=== PATIENT | female | born 1985 | race Caucasian/White ===

== ENCOUNTER 2022-10-25 06:51 | Day surgery (SDC) | payer MEDICAID ==
[~2022-10-25] VITALS: Ht 175.3 cm; Wt 79.2 kg
[2022-10-25] VITALS (7 sets, daily range): BP systolic 94–122; BP diastolic 63–77; PULSE 82–92; RESP 15–18; TEMP 98.1; O2SAT 92–97
[~2022-10-25 06:51] MED LIST: FOLI0.4T14 PO; NICO-503 PO; OMEP20CA16 PO; POLY119P2 PO; SIME62.5 PO; THIA50TA10 PO
[2022-10-25] MEDS ORDERED: ZOLP5TAB2 PO (07:47)
[2022-10-25] MEDS ORDERED: SPIR25TA5 PO (07:47)
[2022-10-25] MEDS ORDERED: POTA-192 PO (07:47)
[2022-10-25] MEDS ORDERED: FURO-150 PO (07:47)
[2022-10-25] MEDS: albumin 25% 100mL bottle x 1 IV PRN ×2 (08:56→08:57)
== END 2022-10-25 09:50 | disposition home or self-care (01) ==
LOC: SSTAY O 06:51
PROVIDERS: ATTEND Radiology Vascular & Interventional Radiology
DX: K70.31 Alcoholic cirrhosis of liver with ascites (principal); E87.5 Hyperkalemia; F41.9 Anxiety disorder, unspecified; E66.9 Obesity, unspecified; Z68.25 Body mass index [BMI] 25.0-25.9, adult; F10.20 Alcohol dependence, uncomplicated; Z98.890 Other specified postprocedural states; Z98.51 Tubal ligation status; F17.290 Nicotine dependence, other tobacco product, uncomplicated; Z79.899 Other long term (current) drug therapy
CPT/HCPCS: 49083; C1729; J3490; P9047; A6258; A6449

== ENCOUNTER 2022-11-11 08:37 | Day surgery (SDC) | payer MEDICAID ==
[2022-11-11] VITALS (8 sets, daily range): BP systolic 100–137; BP diastolic 61–83; PULSE 77–90; RESP 12–16; TEMP 98.1; O2SAT 97–99
[~2022-11-11] VITALS: Ht 175.3 cm; Wt 79.0 kg
[~2022-11-11 08:37] MED LIST changes: +FURO-150 PO; +POTA-192 PO; -SIME62.5 PO; +SPIR25TA5 PO; -THIA50TA10 PO; +ZOLP5TAB2 PO
[2022-11-11] MEDS: albumin 25% 100mL bottle x 1 IV PRN ×2 (09:15→10:00)
== END 2022-11-11 11:00 | disposition home or self-care (01) ==
LOC: SSTAY O 08:37
PROVIDERS: ATTEND Radiology Vascular & Interventional Radiology
DX: K70.31 Alcoholic cirrhosis of liver with ascites (principal); E87.6 Hypokalemia; F41.9 Anxiety disorder, unspecified; F10.20 Alcohol dependence, uncomplicated; E66.9 Obesity, unspecified; Z68.25 Body mass index [BMI] 25.0-25.9, adult; F17.290 Nicotine dependence, other tobacco product, uncomplicated; Z98.51 Tubal ligation status; Z98.890 Other specified postprocedural states; Z79.899 Other long term (current) drug therapy
CPT/HCPCS: 49083; C1729; J3490; P9047; A6258

== ENCOUNTER 2022-12-03 07:15 | Day surgery (SDC) | payer MEDICAID ==
[~2022-12-03] VITALS: Ht 175.3 cm; Wt 80.4 kg
[2022-12-03] MEDS ORDERED: albumin 25% 100mL bottle x 1 IV PRN (07:35)
[2022-12-03] MEDS ORDERED: SPIR100T5 PO (07:45)
[2022-12-03 07:47] VITALS: BP 99/63; PULSE 99; RESP 14; TEMP 97.7; O2SAT 98
[2022-12-03 08:06] VITALS: BP 105/79; PULSE 91; RESP 14; O2SAT 100
[2022-12-03] MEDS ORDERED: ondansetron/PF 4mg/2ml inj IV ONE (08:15)
[2022-12-03 08:25] VITALS: BP 104/66; PULSE 97; RESP 14; O2SAT 100
[2022-12-03 08:36] VITALS: BP 95/67; PULSE 87; RESP 14; O2SAT 100
[2022-12-03 08:51] VITALS: BP 89/60; PULSE 88; RESP 14; O2SAT 100
[2022-12-03 09:06] VITALS: BP 94/52; PULSE 85; RESP 16; O2SAT 100
== END 2022-12-03 09:05 | disposition home or self-care (01) ==
LOC: SSTAY O 07:15
PROVIDERS: ATTEND Radiology Vascular & Interventional Radiology
DX: K70.31 Alcoholic cirrhosis of liver with ascites (principal); E87.6 Hypokalemia; E66.9 Obesity, unspecified; Z68.26 Body mass index [BMI] 26.0-26.9, adult; F10.20 Alcohol dependence, uncomplicated; F17.290 Nicotine dependence, other tobacco product, uncomplicated; Z98.890 Other specified postprocedural states; Z98.51 Tubal ligation status; Z79.899 Other long term (current) drug therapy
CPT/HCPCS: 49083; C1729; J2405; J3490; P9047; A6258